=== PATIENT | female | born 1960 | race Caucasian/White ===

== ENCOUNTER 2017-01-08 05:20 | Day surgery (SDC) | payer MEDICARE ==
[2017-01-07 12:36] LABS: BASOPHILS 2.2 % (0-2); EOSINOPHILS 6.3 % (0-7); HEMATOCRIT 36.6 % (36.0-48.0); HEMOGLOBIN 11.6 g/dL (12-16); LYMPHOCYTES 42.8 % (15-50); MCH 29.7 pg (26.0-34.0); MCHC 31.7 g/dL (31.0-37.0); MCV 93.6 fL (80.0-100.0); MEAN PLATELET VOLUME 11.3 fL (7.4-10.4); MONOCYTES 10.7 % (2-11); PLATELET COUNT 304 10x3/uL (130-400); RBC 3.91 10x6/uL (4.00-5.40); WBC 4.1 10x3/uL (4.8-10.8)
[2017-01-07 12:56] LABS: ANION GAP 12.1 mmol/L (8-16); CALCIUM 8.8 mg/dL (8.5-10.1); CARBON DIOXIDE 26.1 mmol/L (21.0-32.0); CREATININE - SERUM 1.4 mg/dL (0.6-1.3); POTASSIUM - SERUM 4.2 mmol/L (3.5-5.1)
[~2017-01-08] VITALS: Ht 152.4 cm; Wt 67.1 kg
--- NOTE | ~2017-01-08 | OP ---
PATIENT NAME: ROZ BATISTA V MEDICAL RECORD: [id number] :62 LOCATION:D.OPS ADMISSION DATE: SURGEON: JOSE FLOREZ MD DATE OF OPERATION: 01/08/2017 PREOPERATIVE DIAGNOSES: 1. Dysphagia. 2. Anemia. 3. Gastric antral vascular ectasias. POSTOPERATIVE DIAGNOSES: 1. Dysphagia. 2. Anemia. 3. Gastric antral vascular ectasias. PROCEDURES: 1. Esophagogastroduodenoscopy with antral biopsies. 2. Esophageal dilation with a 54-Namibian through the catheter balloon. 3. Argon plasma coagulation therapy to areas of gastric antral vascular ectasias. SURGEON: Jose Florez MD IT SECURITY CONSULTANT: None. BLOOD LOSS: Minimal. ANESTHESIA: General. COMPLICATIONS: None. The degree of gastric antral vascular ectasias likely does not account for the patient's anemia. There were only about a dozen patchy areas which were small. ENDOSCOPIC COURSE: The patient was conveyed to the operating room electively on 01/08/2017. General anesthesia was induced by anesthesia staff. A bite block was inserted. A gastroscope was inserted into the mouth. It was advanced easily into the hypopharynx. The esophagus was easily intubated as were the stomach and duodenum. Upon withdrawal, retroflexed and angulus views were obtained. Antral biopsies were obtained. I then used the argon plasma metal drilling machine operator with the esophageal mode in the forced setting to ablate the areas of gastric antral vascular ectasias. I noted no others. I then withdrew into the cardia of the stomach. I advanced through the catheter balloon. I then sequentially dilated the entire length of the esophagus to 54-Namibian. I then removed the gastroscope and balloon dilator. I readvanced the gastroscope. There had been no false passage or perforation. The gastroscope was then withdrawn under direct vision. The patient was then extubated and conveyed to post-anesthesia care unit where she was in stable condition. She will be dismissed home and I will see her in the office in 2-3 weeks. TRANSINT:[id number] Voice Confirmation ID: [id number] DOCUMENT ID: [id number] OPERATIVE REPORT [id number] ROZ BATISTA V JOSE FLOREZ MD CC: TEENA QUINTANILLA MD and KEL MARIA MD [id number] DICTATION DATE: 01/08/17903 GUN PERFORATOR LOADER: 01/08/17 1643 [facility] [place] 01/08/17 [facility] [address] [place] [address]
--- NOTE | ~2017-01-08 | HP ---
PATIENT: ROZ BATISTA V MEDICAL RECORD: [id number] ACCOUNT: [id number] LOCATION:TEJA : 62 ADMISSION DATE: 01/08/17 HISTORY AND PHYSICAL EXAMINATION CHIEF COMPLAINT: Anemia. HISTORY OF PRESENT ILLNESS: The patient has had melena. She has had anemia. She has had a history of gastric antral vascular ectasias, which have caused blood loss anemia. She also has dysphagia at the level of the cricopharyngeus. My plan is esophagogastroduodenoscopy with argon plasma coagulation therapy to areas of gastric antral vascular ectasias as well as esophageal dilation. The risks, possible complications and alternatives to procedure were explained to the patient. She elects to proceed. ALLERGIES: SHE HAS NUMEROUS ALLERGIES. See the nursing list for the allergies. HOME MEDICATIONS: Acyclovir, Phenergan, lisinopril, Zoloft, insulin as well as levothyroxine. PAST MEDICAL AND SURGICAL HISTORY: Coronary artery disease, hypertension, history of CABG, history of coronary stents, insulin-dependent diabetes mellitus, also hypothyroidism, on replacement therapy. SOCIAL HISTORY: Nonsmoker. PHYSICAL EXAMINATION: GENERAL: The patient does not appear acutely ill. She does not appear chronically ill. VITAL SIGNS: Reviewed. HEAD: External ears appear normal. EYES: Extraocular movements are intact. NECK: Trachea is midline. CHEST: No intercostal retractions. PULMONARY: Nonlabored, no stridor. ABDOMEN: She has epigastric tenderness. IMPRESSION: 1. Anemia, likely blood loss anemia. 2. History of gastric antral vascular ectasias. 3. Dysphagia. PLAN: EGD, esophageal dilation, radiofrequency ablation of areas of gastric antral vascular ectasias. TRANSINT:[id number] Voice Confirmation ID: [id number] DOCUMENT ID: [id number] HISTORY AND PHYSICAL [id number] ROZ BATISTA V JOSE FLOREZ MD CC: TEENA QUINTANILLA MD, SEYMOUR TREJO MD and KEL MARIA [id number] DICTATION DATE: 01/08/17900 LAY OUT TECHNICIAN: 01/08/17954 [facility] [address] [place] [address]
[~2017-01-08 05:20] MED LIST: ARAVA10 MG PO; ASPIRIN EC81 M1 PO; ASPIRIN81 MG PO; BAYER CHEWABLE81 MG PO; BYSTOLIC5 MG PO; CALCIUM 600+D T1 TA1 PO; CARAFATE1 G/10 ML PO; COMPAZINE10 MG PO; DEXILANT60 MG PO; DILAUDID2 MG PO; GAS-X180 MG PO; HUMALOG 30100 UNITS/; HUMALOG 30100 UNITS/ SC; HUMULIN R100 U/ML SC; K-DUR20 MEQ PO; LANTUS INSULIN10 ML; LANTUS INSULIN10 ML SC; LASIX40 MG PO; LEVAQUIN500 MG PO; LEVOTHROID100 MCG PO; LOPRESSOR25 MG PO; MEVACOR40 MG PO; MYLANTA II SUSP30 ML PO; NITROMIST8.5 GM SL; NOVOLIN R100 U/ML SQ; PEPCID20 MG PO; PHENERGAN25 M1; PHENERGAN25 M1 PO; PLAVIX75 MG PO; PRENATAL COMPLE1 TAB PO; PREVALITE POWD231 GM PO; PRINIVIL20 MG PO; PROBIOTIC1 EAC1 PO; RESTORIL15 MG PO; SILVADENE CREAM50 GM TOPICAL; SYNTHROID112 MCG PO; TOPROL XL25 MG PO; TRICOR145 MG PO; VIVELLE-DO1 PATCH.B1 TP; ZOLOFT50 MG PO; ZOVIRAX400 MG PO; ZYLOPRIM100 MG PO
[2017-01-08 06:18] VITALS: BP 127/56; Ht 152.4 cm; Wt 67.1 kg
--- NOTE | 2017-01-08 09:15 | NUR ---
THE PATIENT REPORTED NAUSEA UPON ENTRANCE TO RECOVERY AND IT HAS NOW RESOLVED AFTER TREATMENT
--- NOTE | 2017-01-08 10:07 | NUR ---
[address] [place] DIET SERVED.
== END 2017-01-08 11:35 | disposition home or self-care (01) ==
LOC: D.OPS 05:20 → D.PAN 08:00 → D.OPS 11:35 → D.PAN 13:30 → D.OPS 13:30 → D.PAN 14:15
PROVIDERS: Anesthesiology
DX: K31.811 Angiodysplasia of stomach and duodenum with bleeding (principal); D50.0 Iron deficiency anemia secondary to blood loss (chronic); I25.10 Atherosclerotic heart disease of native coronary artery without angina pectoris; I10 Essential (primary) hypertension; Z95.1 Presence of aortocoronary bypass graft; Z95.5 Presence of coronary angioplasty implant and graft; E11.9 Type 2 diabetes mellitus without complications; E03.9 Hypothyroidism, unspecified; Z79.4 Long term (current) use of insulin; Z79.899 Other long term (current) drug therapy; Z01.812 Encounter for preprocedural laboratory examination

== ENCOUNTER 2017-01-29 22:52 | Observation (INO) | payer MEDICARE ==
[~2017-01-29] VITALS: Ht 152.4 cm; Wt 64.9 kg
--- NOTE | ~2017-01-29 | CN ---
PATIENT NAME:ROZ BATISTA V MEDICAL RECORD: [id number] : 62 LOCATION:D. D.2122 ADMIT DATE: 01/30/17 ACCOUNT: [id number] CONSULTING PHYSICIAN: SEYMOUR TREJO MD REFERRING PHYSICIAN: SINTIA SWARTZ MD CARDIOLOGY CONSULT PROBLEM LIST: 1. Unstable angina. 2. Coronary artery disease. 3. Status post coronary artery bypass graft surgery. 4. Status post multivessel percutaneous transluminal coronary angioplasty stent. 5. Hypertension. 6. Hyperlipidemia. 7. Recurrent gastrointestinal bleed with AV malformations. 8. Recent laser surgery gastric for AV malformations due to gastrointestinal bleeding. 9. Insulin dependent diabetes. HISTORY OF PRESENT ILLNESS: The patient is well-known to us. She is a 56-year-old female with a past history of coronary artery disease who presents with recurrent anginal chest discomfort. Her last cardiac intervention was in August of 2015. She has quite the problem with Plavix. She has AV malformations of her stomach. Every time she gets on Plavix she has significant gastrointestinal bleeding requiring transfusion. Her last gastrointestinal bleed was approximately one month ago. She had laser sclerotherapy done to her AV malformations by Dr. Shepherd. She has been stable from the standpoint of gastrointestinal bleeding since. Her chest pain started within the past week. She is having increasing episodes of chest pain just like that of her previous angina. PHYSICAL EXAMINATION: HEAD, EYES, EARS, NOSE, AND THROAT: Benign. NECK: Supple. No jugular venous distention. Carotid upstroke plus two bilaterally without bruits. LUNGS: Overall clear to auscultation and percussion. HEART: Regular. Normal S1, normal S2. No S3, no S4. No murmurs. BONES, JOINTS, EXTREMITIES: No clubbing, cyanosis, or edema. OVERALL IMPRESSION: Anginal symptomatology. Will proceed with coronary angiography. Will use a stent that only requires 30 days of Plavix secondary to her intolerance of the Plavix from gastrointestinal bleeding and her recent gastrointestinal bleeding. Further care depends upon the findings of the angiography. SEYMOUR TREJO MD CC: [id number] DICTATION DATE: 01/30/17 1400 LUGGAGE MAKER: DM 01/31/17 1541 [facility] [place] 01/30/17 [facility] [address] [place] [id number]
--- NOTE | ~2017-01-29 | OP ---
PATIENT NAME: ROZ BATISTA V MEDICAL RECORD: [id number] :62 LOCATION:D. D.2 ADMISSION DATE:01/30/17 SURGEON: SEYMOUR TREJO MD OPERATION DATE: 01/30/17 PROCEDURES: 1. Percutaneous transluminal coronary angioplasty stent vein graft to the left circumflex. 2. Left heart catheterization. 3. Selective coronary angiography. 4. Left ventriculogram. 5. Vein graft angiography. 6. Left internal mammary artery angiography. INDICATION: 1. Unstable angina. 2. Coronary artery disease. PROCEDURE IN DETAIL: After informed consent was obtained and after detailed explanation of risks, benefits, as well as alternative therapies, the patient elected to proceed with angiogram and angiography. The right femoral area was prepped and draped in a normal sterile fashion. The right femoral artery was cannulated via modified Seldinger technique with placement of 6-Swedish sheath. All catheters exchanged through this sheath. FINDINGS: SELECTIVE CORONARY ANGIOGRAPHY: 1. Left main was with no significant angiographic disease. 2. Left anterior descending has a high grade stenosis in the mid vessel. 3. Left internal mammary artery to the distal left anterior descending is widely patent. 4. Distal left anterior descending is widely patent. 5. The left circumflex has a subtotal stenosis in the mid vessel. 6. Vein graft to the circumflex is patent. However, there is a stent in the proximal portion of the vein graft with 99% in-stent restenosis, JAD 2 flow. The lesion is approximately an 8 millimeter lesion in a 3.0 vessel. 7. The right coronary artery has previously placed stents. These are widely patent with no significant restenosis. No disease elsewise to the right coronary artery or its branches. PTCA STENT OF THE VEIN GRAFT TO THE CIRCUMFLEX: The stent used was 3.0 X 11 millimeter [employer] taken to 17 atmospheres. Post stent dilatation made with a 3.5 balloon taken to 23 atmospheres. The result was 0% residual stenosis. OVERALL IMPRESSION: Successful percutaneous transluminal coronary angioplasty stent of the vein graft to the circumflex going from 95% initial stenosis that was in-stent restenosis to 0% residual stenosis. ` OPERATIVE REPORT [id number] ROZ BATISTA V SEYMOUR TREJO MD CC: [id number] DICTATION DATE: 01/30/17 1400 CUSTOMER INSIGHT ANALYST: DM 01/31/17 1405 [facility] [place] 01/30/17 [facility] [address] [place] [address]
--- NOTE | ~2017-01-29 | HEMODYNAMI ---
PATIENT:ROZ BATISTA V MEDICAL RECORD: [id number] : 62 LOCATION:[facility] D.2122 ADMISSION DATE: 01/30/17 Generatedon:01/30/201714:00 Patient name: RZO BATISTA Patient #: [id number] SSN: D OB: 1960 Date of study: 01/30/2017 Page: Of Hemodynamic Procedure Report Patient Data Patient Demographics Procedure consent was obtained First Name: ROZ Gender: Female Last Name: : 1960 Middle Initial: V Age: 56 year(s) Patient #: [id number] Race: Additional ID: [id number] Contact details [address]: [address] [place] [address] State: [place] City: [place] Zip code: [address] Past Medical History Allergies Allergen Reaction Date Comments Reported Sulfa drugs 09/02/2014 Admission Admission Data Admission Date: 01/30/2017 Admission Time: 1:14 Room #: [facility] Height (in.): 60 BSA: 1.62 (m2) Height (cm.): 152.4 BMI: 27.93 (kg/m2) Weight (lbs.): 143 Weight (kg.): 64.86 Lab Results Lab Result Date: 01/30/2017 Lab Result Time: 0:00 Biochemistry Name Units Result Min Max BUN mg/dl 23 --(----)-* 7 18 CK-MB ng/ml 2.7 --(---*)-- 0 3.6 Creatinine mg/dl 1.5 --(----)-* 0.6 1.3 Creatinine l 71 --(-*--)-- 21 215 Kinase Troponin l ng/ml 0.017 --(-*--)-- 0 0.06 CBC Name Units Result Min Max Hemoglobin g/dl 10.6 *-(----)-- 13.5 17.5 Procedure Procedure Types Cath Procedure Diagnostic Procedure LHC LHC w/Coronaries w/Grafts PCI Procedure SVG-BMS/LISSETTE Initial Miscellaneous Procedures Moderate Sedation up to 45 minutes Procedure Description Procedure Date Procedure Date: 01/30/2017 Procedure Start Time: 13:12 Procedure End Time: 13:59 Procedure Staff Name Function Major Walsh MD Performing Physician Dave Fairchild RT Scrub Birgit Riley RN Nurse Efe Narayan RT Monitor Procedure Data Cath Procedure Fluoroscopy Diagnostic fluoroscopy Total fluoroscopy Time: 13 time: 13 min min Diagnostic fluoroscopy Total fluoroscopy dose: dose: 254.86 mGy 254.86 mGy Contrast Material Contrast Material Type Amount (ml) Isovue 300 132 Entry Location Entry Primary Successful Side Size Upsize Upsize Entry Closure Succes sful Closure Location (Fr) 1 (Fr) 2 (Fr) Remarks Device Remarks Femoral Right 5 Fr 6 Fr Exoseal artery Short Diagnostic catheters Device Type Used For End Catheter Placement Cordis 5Fr Pigtail LV Angiography Catheter (MP) Cordis 5Fr JL 4.0 Left Coronary Catheter (MP) Angiography Cordis 5Fr 3DRC Catheter Right Coronary (MP) Angiography Diagnostic Infinity 5Fr SVG Angiography AR 1 MOD catheter Procedure Complications No complications Procedure Medications Medication Administration Route Dosage Oxygen NC 3 l/min Lidocaine 2% added to field 20 Heparin Flush Bag added to field 2 bags (1000units/500ml NS) 0.9% NaCl I.V. 100 ml/hr Versed I.V. 1 mg Fentanyl I.V. 50 mcg Heparin Bolus I.V. 4000 units Integrilin (Bolus I.V. 5.6 ml 2mg/ml) Integrilin (Bolus wasted 4.4 ml 2mg/ml) Versed I.V. 1 mg Fentanyl I.V. 50 mcg Versed I.V. 1 mg Fentanyl I.V. 50 mcg Versed I.V. 1 mg Fentanyl I.V. 50 mcg Versed I.V. 1 mg Fentanyl I.V. 50 mcg Versed I.V. 1 mg Fentanyl I.V. 50 mcg Hemodynamics Rest BSA: 1.62 (m2) HGB: 10.6 (g/dl) O2 Consumption: Estimated: 153.39 (ml/min) O2 Co nsumption indexed: Estimated:94.69 (ml/min/m) Heart Rate: 66 (bpm) Pressure Samples Time Site Value (mmHg) Purpose Heart Use Rate(bpm) 13:26 AO 127/56(85) Snapshot 75 Snapshots Pre Cath Intra NCS Post Cath Vital Signs Time Heart Resp SPO2 NIBP (mmHg) Rhythm Pain Sedation Rate (ipm) (%) Status Level (bpm) 12:44:22 61 20 100 145/68(105) NSR 0 (11) 10(A) , No pain 12:49:21 67 19 100 Measuring NSR 0 (11) 10(A) , No pain 12:49:39 66 19 100 129/58(99) NSR 0 (11) 10(A) , No pain 12:54:00 66 20 100 110/61(97) NSR 0 (11) 10(A) , No pain 12:58:18 69 17 99 109/57(93) NSR 0 (11) 10(A) , No pain 13:02:36 68 18 99 107/54(92) NSR 0 (11) 10(A) , No pain 13:06:54 69 16 99 116/56(88) NSR 0 (11) 10(A) , No pain 13:11:08 69 18 99 119/58(90) NSR 0 (11) 9(A) , No pain 13:15:26 70 20 99 106/53(84) NSR 0 (11) 9(A) , No pain 13:19:42 71 17 99 114/58(86) NSR 0 (11) 9(A) , No pain 13:23:56 71 17 98 113/55(96) NSR 0 (11) 9(A) , No pain 13:28:08 71 20 99 99/54(84) NSR 0 (11) 9(A) , No pain 13:32:22 68 18 98 102/51(74) NSR 0 (11) 9(A) , No pain 13:36:38 71 19 99 116/55(92) NSR 0 (11) 9(A) , No pain 13:40:52 68 10 99 110/56(84) NSR 0 (11) 9(A) , No pain 13:45:14 69 14 99 118/47(100) NSR 0 (11) 10(A) , No pain 13:49:26 74 21 98 98/25(50) NSR 0 (11) 10(A) , No pain 13:53:38 67 6 95 115/60(97) NSR 0 (11) 10(A) , No pain 13:58:00 68 8 96 126/54(107) NSR 0 (11) 10(A) , No pain Medications Time Medication Route Dose Verified Delivered Reason Notes Ef fectiveness by by 12:43:26 Oxygen NC 3 Birgit Birgit used for l/min Osvaldo Osvaldo insole buffer RN 12:43:36 Lidocaine 2% added 20ml Birgit Birgit used for to vial Osvaldo Osvaldo procedure field RN RN 12:43:44 Heparin Flush added 2 Birgit Birgit used for Bag to bags Osvaldo Osvaldo procedure (1000units/500ml field RN RN NS) 12:43:55 0.9% NaCl I.V. 100 Birgit Birgit used for ml/hr Osvaldo Osvaldo insole buffer RN 13:09:47 Versed I.V. 1 mg Birgit Birgit for Osvaldo Osvaldo sedation RN RN 13:09:54 Fentanyl I.V. 50 Birgit Birgit for mcg Osvaldo Osvaldo sedation RN RN 13:13:29 Versed I.V. 1 mg Birgit Birgit for Osvaldo Osvaldo sedation RN RN 13:13:40 Fentanyl I.V. 50 Birgit Birgit for mcg Osvaldo Osvaldo sedation RN RN 13:16:56 Heparin Bolus I.V. 4000 Major Birgit Per verified units Jillian PINTO Osvaldo physician with dr. REINALDO walsh 13:17:24 Integrilin I.V. 5.6 Major Birgit Per verified (Bolus 2mg/ml) ml Jillian PINTO Osvaldo physician with dr. REINALDO walsh 13:17:44 Versed I.V. 1 mg Birgit Birgit for Osvaldo Osvaldo sedation RN RN 13:17:56 Fentanyl I.V. 50 Birgit Birgit for mcg Osvaldo Osvaldo sedation RN RN 13:21:44 Versed I.V. 1 mg Birgit Birgit for Osvaldo Osvaldo sedation RN RN 13:21:56 Fentanyl I.V. 50 Birgit Birgit for mcg Osvaldo Osvaldo sedation RN RN 13:25:02 Versed I.V. 1 mg Birgit Birgit for Osvaldo Osvaldo sedation RN RN 13:25:24 Fentanyl I.V. 50 Birgit Birgit for mcg Osvaldo Osvaldo sedation RN RN 13:31:56 Versed I.V. 1 mg Birgit Birgit for Osvaldo Osvaldo sedation RN RN 13:32:01 Integrilin wasted 4.4 Major Birgit Per (Bolus 2mg/ml) ml Jillian PINTO Osvaldo physician RN 13:32:08 Fentanyl I.V. 50 Birgit Birgit for mcg Osvaldo Osvaldo sedation RN save all operator Log Time Note 12:15:12 Dave Fairchild RT(R) (CV) sent for patient. Start room use. 12:37:23 Time tracking: Regular hours 12:37:26 Plan of Care:Hemodynamics will remain stable., Cardiac rhythm will remain stable., Comfort level will be maintained., Respiratory function will remain adequate., Patient/ family verbilizes understanding of procedure., Procedure tolerated without complication., Recovers from procedure without complications.. 12:37:40 Patient received from Med/Surg to CCL 3 Alert and oriented. Tansferred to table in Supine position. 12:37:41 Warm blankets applied, and fernando hugger turned on for patient comfort. 12:37:42 Correct patient and procedure confirmed by team. 12:37:43 Signed procedure consent form obtained from patient. 12:37:44 ECG and BP/O2 sat monitors applied to patient. 12:38:22 Full Disclosure recording started 12:38:22 - 12:38:26 H&P Date Dictated: 01/30/2017 Within 30 days and on chart.. 12:38:28 Pre-procedure instructions explained to patient. 12:38:28 Pre-procedure instructions explained to patient. 12:38:29 Pre-op teaching completed and patient verbalized understanding. 12:38:31 Family in waiting room. 12:38:33 Patient NPO since Midnight. 12:38:36 Is the patient allergic to Iodine/contrast media? No. 12:38:38 Is patient on blood thinner?No 12:38:40 Patient diabetic? Yes. 12:38:42 If diabetic: On Metformin? No 12:39:09 ----Pre-sedation anethsthesia assessment.---- 12:39:12 Previous problem with sedation/anesthesia? No ? 12:39:13 Snore? Yes 12:39:15 Sleep apnea? No 12:39:16 Deviated septum? No 12:39:17 Opens mouth fully? No 12:39:19 Sticks out tongue? Yes 12:39:22 Airway obstruction? Yes ? 12:39:25 Dentures? No ? 12:39:37 Pre procedure: right dorsailis pedis pulse Doppler 12:39:42 Patient pain scale 0/10 NO PAIN. 12:42:54 Sharps counted by scrub and verified by R.N. 12:42:55 Alarms reviewed by R. N. 12:42:59 Right groin area was prepped with chlora-prep and draped in sterile fashion 12:43:09 Vital chart was started 12:43:09 IV patent on arrival in right forearm with 0.9% NaCl at [facility]. 12:43:26 Oxygen 3 l/min NC was administered by Birgit Riley RN; used for procedure; 12:43:36 Lidocaine 2% 20ml vial added to field was administered by Birgit Riley RN; used for procedure; 12:43:44 Heparin Flush Bag (1000units/500ml NS) 2 bags added to field was administered by Birgit Riley RN; used for procedure; 12:43:55 0.9% NaCl 100 ml/hr I.V. was administered by Birgit Riley RN; used for procedure; 12:49:20 Use device set Femoral Dx 12:49:21 Tegaderm 4 x 4 opened to sterile field. 12:49:22 Diagnostic Infinity 5Fr Multipack catheter opened to sterile field. 12:49:23 Acist Manifold opened to sterile field. 12:49:24 Acist Hand Control opened to sterile field. 12:49:45 Acist Syringe opened to sterile field. 12:49:45 Bag Decanter opened to sterile field. 12:49:47 Medline Cath Pack opened to sterile field. 12:49:48 Terumo 5Fr [place] Sheath opened to sterile field. 12:49:50 St Abelardo 260cm J .035 wire opened to sterile field. 12:55:03 Baseline sample Acquired. 12:55:07 Rhythm: sinus rhythm 12:55:49 Patient Height : 152.4 cm 12:55:52 Patient Weight : 64.86 kg 13:03:23 Zero performed for pressure channel P1 13:09:09 Physician arrived 13:09:10 --------ALL STOP TIME OUT------ 13:09:11 Final Timeout: patient, procedure, and site verified with staff and physician. All members of the team are in agreement. 13:09:13 Right groin site verified by team. 13:09:16 Physical assessment completed. ASA score P 2 - A patient with mild systemic disease as per Major Walsh MD. 13:09:20 Sedation plan: IV Moderate Sedation Versed, Fentanyl 13:09:47 Versed 1 mg I.V. was administered by Birgit Riley RN; for sedation; 13:09:54 Fentanyl 50 mcg I.V. was administered by Birgit Riley RN; for sedation; 13:10:53 Procedure started. 13:12:57 Local anesthetic to right femoral artery with Lidocaine 2% by Major Walsh MD.INITIAL ACCESS ONLY 13:13:09 A 5 Fr sheath was inserted into the Right Femoral artery 13:13:28 A Cordis 5Fr Pigtail Catheter (MP) was advanced over the wire and used for LV Angiography. 13:13:29 Versed 1 mg I.V. was administered by Birgit Riley RN; for sedation; 13:13:31 LV angiography performed. 13:13:35 Catheter removed. 13:13:40 Fentanyl 50 mcg I.V. was administered by Birgit Riley RN; for sedation; 13:13:42 A Cordis 5Fr JL 4.0 Catheter (MP) was advanced over the wire and used for Left Coronary Angiography. 13:14:08 LCA angiography performed. 13:14:20 Catheter removed. 13:14:41 A Cordis 5Fr 3DRC Catheter (MP) was advanced over the wire and used for Right Coronary Angiography. 13:15:30 SEN angiography performed. 13:15:37 SEN to LAD angiography performed. 13:15:46 RCA angiography performed. 13:16:20 Reglare Launcher 6Fr AR 2.0 guide catheter opened to sterile field. 13:16:21 [employer] BasixCompak Inflation Kit opened to sterile field. 13:16:22 Zuleta Whisper J 300cm 0.014 guide wire opened to sterile field. 13:16:34 A Diagnostic Infinity 5Fr AR 1 MOD catheter was advanced over the wire and used for SVG Angiography. 13:16:42 SEN to Circ angiography performed. 13:16:56 Heparin Bolus 4000 units I.V. was administered by Birgit Riley RN; Per physician; verified with dr. walsh 13:17:09 Sheath upsized to a 6 Fr Short. 13:17:24 Integrilin (Bolus 2mg/ml) 5.6 ml I.V. was administered by Birgit Riley RN; Per physician; verified with dr. walsh 13:17:44 Versed 1 mg I.V. was administered by Birgit Riley RN; for sedation; 13:17:56 Fentanyl 50 mcg I.V. was administered by Birgit Riley RN; for sedation; 13:18:44 WHISPER wire advanced. 13:18:51 Medtronic Launcher 6Fr AR 2.0 SH guide catheter opened to sterile field . 13:21:44 Versed 1 mg I.V. was administered by Birgit Riley RN; for sedation; 13:21:56 Fentanyl 50 mcg I.V. was administered by Birgit Riley RN; for sedation; 13:23:47 Procedure type changed to Cath procedure, Diagnostic procedure, LHC, LH C w/Coronaries w/Grafts, PCI procedure, SVG-BMS/LISSETTE Initial, Miscellaneous Procedures, Moderate Sedation up to 45 minutes 13:24:50 Inflation number: 1 A Mozec Rx 2.5 x 14 balloon was prepped and advance d across the Aorta Left -> Mid CX, then inflated to 8 DARLING for 0:06 (min:sec). 13:25:02 Versed 1 mg I.V. was administered by Birgit Riley RN; for sedation; 13:25:15 Balloon removed over the wire. 13:25:16 Balloon removed over the wire. 13:25:24 Fentanyl 50 mcg I.V. was administered by Birgit Riley RN; for sedation; 13:27:25 Inflation number: 2 A Euphora 1.5 x 15 Balloon was prepped and advanced across the Aorta Left -> Mid CX, then inflated to 21 DARLING for 0:08 (min:sec). 13:27:50 Inflation number: 3 The Euphora 1.5 x 15 Balloon was reinflated across the Aorta Left -> Mid CX, to 21 DARLING for 0:17 (min:sec). 13:28:13 Balloon removed over the wire. 13:29:58 Inflation number: 4 The Mozec Rx 2.5 x 14 balloon was reinflated across the Aorta Left -> Mid CX, to 21 DARLING for 0:30 (min:sec). 13:30:23 Inflation number: 5 The Mozec Rx 2.5 x 14 balloon was reinflated across the Aorta Left -> Mid CX, to 21 DARLING for 0:11 (min:sec). 13:30:43 Balloon removed over the wire. 13:31:56 Versed 1 mg I.V. was administered by Birgit Riley RN; for sedation; 13:32:01 Integrilin (Bolus 2mg/ml) 4.4 ml wasted was administered by Birgit Riley RN; Per physician; 13:32:08 Fentanyl 50 mcg I.V. was administered by Birgit Riley RN; for sedation; 13:34:01 Inflation number: 6 A NC Euphora 2.75 x 15 balloon was prepped and advanced across the Aorta Left -> Mid CX, then inflated to 21 DARLING for 0:19 (min:sec). 13:34:46 Inflation number: 7 The NC Euphora 2.75 x 15 balloon was reinflated across the Aorta Left -> Mid CX, to 23 DARLING for 0:17 (min:sec). 13:35:03 Balloon removed over the wire. 13:37:10 Inflation number: 8 A NC Euphora 3.0 x 15 balloon was prepped and advanced across the Aorta Left -> Mid CX, then inflated to 21 DARLING for 0:10 (min:sec). 13:37:45 Balloon removed over the wire. 13:39:56 Inflation Number: 9 A Biofreedom 3.0 x 11 stent (No Cost Implant) was prepped and advanced across the Aorta Left -> Mid CX. The stent was deployed at 21 DARLING for 0:10 (min:sec). 13:40:23 Stent catheter was removed intact over wire. 13:41:53 Inflation number: 10 A NC Euphora 3.5 x 12 balloon was prepped and advanced across the Aorta Left -> Mid CX, then inflated to 21 DARLING for 0:12 (min:sec). 13:42:31 EVERYTHING OUT 13:42:46 Sheath removed intact; hemostasis achieved with Exoseal to the Right Femoral artery. 13:43:30 Cordis 6Fr Exoseal opened to sterile field. 13:43:31 Procedure ended.(Physican Out) 13:44:34 Fluoroscopy time 13.00 minutes. 13:50:58 Lab Result : BUN 23 mg/dl 13:50:58 Lab Result : Creatinine 1.5 mg/dl 13:50:58 Lab Result : CK-MB 2.7 ng/ml 13:50:58 Lab Result : Creatinine Kinase 71 l 13:50:58 Lab Result : Troponin l 0.017 ng/ml 13:50:58 Lab Result : Hemoglobin 10.6 g/dl 13:51:05 Insertion/operative site no bleeding no hematoma. 13:51:08 Post-op/insertion site Right Femoral artery dressed using a 4 x 4 and Tegaderm. 13:51:12 Post right femoral artery:stable 13:51:13 Post Procedure Pulses reassessed and unchanged 13:51:15 Post procedure: right dorsailis pedis pulse 1+ Palpable, but thready & weak; easily obliterated. 13:51:17 Post procedure rhythm: sinus rhythm 13:51:19 Post procedure instruction explained to patient.Patient verbalizes understanding. 13:51:20 Procedure and supply charges have been captured, reviewed, submitted an d are correct. 13:53:35 Flurop Dose total: 254.86 13:53:35 Fluoroscopy dose: 254.86 mGy 13:53:43 Contrast amount:Isovue 300 132ml. 13:53:44 Sharps counted by scrub and verified by R.N. 13:56:03 Procedure Complication : No complications 13:59:20 Vital chart was stopped 13:59:20 See physician's report for complete and final results. 13:59:23 Report given to PCU. 13:59:26 Patient transfered to PCU with Bed. 13:59:27 Procedure ended. 13:59:27 Full Disclosure recording stopped 13:59:31 End room use (Document Last) Intervention Summary Intervention Notes Time ActionType Lesion and Equipment Action# Pressure Duration Attributes Used 13:24:50 Inflate Aorta Left Mozec Rx 1 8 00:06 balloon -> Mid CX 2.5 x 14 balloon 13:27:25 Inflate Aorta Left Euphora 2 21 00:08 balloon -> Mid CX 1.5 x 15 Balloon 13:27:50 Reinflate Aorta Left Euphora 3 21 00:17 balloon -> Mid CX 1.5 x 15 Balloon 13:29:58 Reinflate Aorta Left Mozec Rx 4 21 00:30 balloon -> Mid CX 2.5 x 14 balloon 13:30:23 Reinflate Aorta Left Mozec Rx 5 21 00:11 balloon -> Mid CX 2.5 x 14 balloon 13:34:01 Inflate Aorta Left NC Euphora 6 21 00:19 balloon -> Mid CX 2.75 x 15 balloon 13:34:46 Reinflate Aorta Left NC Euphora 7 23 00:17 balloon -> Mid CX 2.75 x 15 balloon 13:37:10 Inflate Aorta Left NC Euphora 8 21 00:10 balloon -> Mid CX 3.0 x 15 balloon 13:39:56 [address] stent Aorta Left Biofreedom 9 21 00:10 -> Mid CX 3.0 x 11 stent (No Cost Implant) 13:41:53 Inflate Aorta Left NC Euphora 10 21 00:12 balloon -> Mid CX 3.5 x 12 balloon Device Usage Item Name Manufacture Quantity Catalog Hospital Part Current Minimal Lot# / Number Charge Number Stock Stock Serial# Code Tegaderm 4 1 [id number] [id number] 5 x 4 Diagnostic Cardinal 1 [id number] 192555 69662 787237 30 Wedia 5Fr Multipack catheter Acist Acist 1 39232 452433 949499 601584 5 Manifold Medical Systems Inc Acist Hand Acist 1 52724 375019 527247 665075 5 Control Medical Systems Inc Acist Acist 1 50496 977024 489387 065527 20 Syringe Medical Systems Inc Bag Microtek 1 2002S 979130 17923 812789 5 [email or web address] Medical Inc. Medline Cardinal 1 [id number] 273390 75579 476489 5 Cath Pack Health Terumo 5Fr Terumo 1 [id number] 071473 745672 246392 [address] Abelardo 1 191568 778865 171410 079285 30 260cm J .035 wire Cordis 5Fr Cardinal 1 310059 5 Pigtail Health Catheter (MP) Cordis 5Fr Cardinal 1 759882 5 JL 4.0 Health Catheter (MP) Cordis 5Fr Cardinal 1 114666 5 3DRC Health Catheter (MP) Medtronic Medtronic 1 [id number] 652692 04477 684318 1 Launcher 6Fr AR 2.0 guide catheter Merit Merit 1 [id number] 648380 975892 100753 15 Basixappweevrk Medical Inflation Kit Zuleta Zuleta 1 [id number] 714527 332124 129646 5 Whisper J Vascular 300cm 0.014 guide wire Diagnostic Cardinal 1 [id number] 449899 658876 275246 15 Infinity Health 5Fr AR 1 MOD catheter Medtronic Medtronic 1 [id number] 647926 22478 501126 1 Launcher 6Fr AR 2.0 SH guide catheter Mozec Rx Cardinal 1 [id number] 342999 59045 164462 5 UMOA36 2.5 x 14 Health balloon Euphora 1.5 Medtronic 1 [id number] 139993 094002 185365 5 [id number] x 15 Balloon NC Euphora Medtronic 1 [id number] 877303 107698 023924 0 [id number] 2.75 x 15 balloon NC Euphora Medtronic 1 [id number] 837557 059121 104234 1 [id number] 3.0 x 15 balloon Biofreedom Biosensors 1 [facility]2-3011 731828 772983 5 [id number] 3.0 x 11 [place] SA stent (No Cost Implant) [place] Euphora Medtronic 1 [id number] 171433 107804 464392 1 [id number] 3.5 x 12 balloon Cordis 6Fr Cardinal 1 [id number] 663217 161165 295680 10 [id number] [facility]oma[facility] Signature Audit [place] Stage Time Signature Unsigned Intra-Procedure 01/30/2017 Efe 2:00:21 PM [place] RT (R) (CV) Signatures Monitor : Efe Signature : [place] RT Date : Time : [place] [address] [place] [address]
[2017-01-30 00:12] LABS: EOSINOPHILS 3.8 % (0-7); HEMATOCRIT 34.7 % (36.0-48.0); HEMOGLOBIN 10.9 g/dL (12-16); IMMATURE GRANULOCYTES 0.3 % (0-5); MCH 29.4 pg (26.0-34.0); MCHC 31.4 g/dL (31.0-37.0); MCV 93.5 fL (80.0-100.0); MEAN PLATELET VOLUME 10.1 fL (7.4-10.4); MONOCYTES 10.6 % (2-11); NEUTROPHILS 24.3 % (40-80); PLATELET COUNT 334 10x3/uL (130-400); RBC 3.71 10x6/uL (4.00-5.40); RDW 15.7 % (11.5-14.5)
[2017-01-30 00:31] LABS: ALBUMIN 3.2 g/dL (3.4-5.0); ALKALINE PHOSPHATASE 62 U/L (46-116); ALT (SGPT) 25 U/L (10-68); BILIRUBIN - TOTAL 0.36 mg/dL (0.2-1.3); CALC OSMOLALITY 287 mosm/kg (275-300); CALCIUM 8.7 mg/dL (8.5-10.1); CARBON DIOXIDE 30.2 mmol/L (21.0-32.0); CHLORIDE - SERUM 107 mmol/L (98-107); CREATININE - SERUM 1.5 mg/dL (0.6-1.3); POTASSIUM - SERUM 3.9 mmol/L (3.5-5.1); PROTEIN - SERUM 6.4 g/dL (6.4-8.2); SODIUM 144 mmol/L (136-145); UREA NITROGEN 23 mg/dL (7-18); eGFR NON AFRICAN AMERICAN 38 mL/min (90-120)
[2017-01-30 00:32] LABS: CKMB 2.7 U/L (0.0-3.6); CREATINE KINASE 71 UL (21-215)
[2017-01-30 00:33] LABS: GLUCOSE 50 mg/dL (74-106); TROPONIN-I < 0.017 ng/mL (0.000-0.060)
[2017-01-30 02:20] VITALS: BP 144/58; BMI 27.9
--- NOTE | 2017-01-30 02:54 | NUR ---
PT ARRIVED ON UNIT VIA WHEELCHAIR ESCORTED BY ER NURSE AND FAMILY MEMBERS. ORIENTED TO ROOM AND CALL LIGHT. CHANGED INTO GOWN AND EKG TECH PLACED...READING 58 SB AT FIRST CHECK. IV IN RIGHT AC SALINE LOCKED. NEURO CHECKS NORMAL. ADMISSION ASSESSMENT AND HISTORY COMPLETE. HOME MEDICATION RECONCILLIATION COMPLETE. WILL MONITOR FOR NEEDS.
[2017-01-30 07:19] LABS: CREATINE KINASE 63 UL (21-215); TROPONIN-I < 0.017 ng/mL (0.000-0.060)
[2017-01-30 07:40] VITALS: BP 125/31
--- NOTE | 2017-01-30 07:45 | NUR ---
PT ASSESSMENT COMPLETE AWAKE AND ALERT ORINETD X 3 LUNGS TORO PATTERSON MAKES ALL REQUESTS KNOWN TO STAFF. UP AD KATELYN DENIES PAIN OR DISCOMFORT NO ACUTE DISTRESS CALL LIGHT IN REACH SIDE RAILS UP X 2
--- NOTE | 2017-01-30 07:50 | NUR ---
PATIENT IN MID STEPHENS POSITION RESTING WITH EYES CLOSED. RESPIRATIONS EVEN AND UNLABORED. SIDE RAILS UP X2. BED IN LOW POSITION. CALL LIGHT IN REACH.
[2017-01-30 08:47] LABS: HEMATOCRIT 32.5 % (36.0-48.0); HEMOGLOBIN 10.6 g/dL (12-16); MCH 30.5 pg (26.0-34.0); MCHC 32.6 g/dL (31.0-37.0); MCV 93.4 fL (80.0-100.0); MEAN PLATELET VOLUME 11.7 fL (7.4-10.4); PLATELET COUNT 334 10x3/uL (130-400); RBC 3.48 10x6/uL (4.00-5.40); WBC 3.4 10x3/uL (4.8-10.8)
[2017-01-30 08:48] LABS: ANION GAP 12.8 mmol/L (8-16); CALCIUM 8.7 mg/dL (8.5-10.1); CARBON DIOXIDE 27.2 mmol/L (21.0-32.0); CREATININE - SERUM 1.4 mg/dL (0.6-1.3)
[2017-01-30 09:49] LABS: ANISOCYTOSIS OCC; EOSINOPHILS 3 % (0-7); HYPOCHROMASIA OCC; LYMPHOCYTES 63 % (15-50); MONOCYTES 8 % (2-11); NEUTROPHILS 26 % (40-80); PLATELET ESTIMATE NORMAL; ROULEAUX OCC
[2017-01-30 11:35] VITALS: BP 99/46
[2017-01-30 12:23] LABS: TROPONIN-I 0.018 ng/mL (0.000-0.060)
--- NOTE | 2017-01-30 12:32 | NUR ---
PT TO SOFTWARE APPLICATION TESTER AT THIS [place] VIA BED WITH SOFTWARE APPLICATION TESTER TEAM PIV TO RT AC PATENT TO NS PER ORDER. FSBS 65 PRIOR TO TRANSPORT SOFTWARE APPLICATION TESTER TEAM NOTIFIED
--- NOTE | 2017-01-30 12:34 | NUR ---
VERBAL REPORT GIVEN TO KATY NAJERA IN PCU
[2017-01-30 13:33] VITALS: Ht 152.4 cm; Wt 64.9 kg
--- NOTE | 2017-01-30 14:22 | NUR ---
RECEIVED PT TO ROOM 2121. VITAL SIGNS STABLE, NO BLEEDING OR HEMATOMA NOTED TO RT GROIN. PT ASKED FOR SOME MILK. TEAM [employer] SAL[employer] ASSOCIATE PROVIDED PT WITH SOME MILK. BLOOD SUGAR 115 NOW. PT DENIES ANY NEEDS AT THIS TIME. CALL LIGHT IN REACH, FAMILY AT BEDSIDE, NAD NOTED, WILL CONTINUE TO MONITOR.
--- NOTE | 2017-01-30 14:45 | NUR ---
EKG DONE AND PLACED ON CHART. PT LAYING FLAT DENIES ANY NEEDS AT THIS TIME. CALL LIGHT IN REACH, FAMILY AT BEDSIDE, NAD NOTED, WILL CONTIUE TO MONITOR.
[2017-01-30 15:46] VITALS: BP 135/61
--- NOTE | 2017-01-30 17:00 | NUR ---
NO BLEEDING OR EDEMA ON SITE. NO APPARENT DISTRESS. WILL CONTINUE TO MONITOR.
[2017-01-30] MEDS ORDERED: PLAVIX75 MG PO (17:12)
--- NOTE | 2017-01-30 17:47 | NUR ---
SITTING UP IN BED. NO EDEMA OR BLEEDING NOTED FROM SITE. LAB HERE TO DRAW BLOOD.
--- NOTE | 2017-01-30 17:56 | NUR ---
IV DC WITH TIP INTACT. UP TO BR ALTAF WELL.
--- NOTE | 2017-01-30 18:28 | NUR ---
DISCHARGE INSTRUCTIONS GIVEN. BOTH FAMILY AND PATIENT UNDERSTAND. TO CAR VIA .
== END 2017-01-30 18:32 | disposition home or self-care (01) ==
LOC: D.ER 22:52 → D.MS 01-30 01:14 → OBSVTIME 01-30 01:14 → D.M2 01-30 12:48
PROVIDERS: Family Medicine; Internal Medicine Interventional Cardiology; ADMIT Emergency Medicine
DX: I25.110 Atherosclerotic heart disease of native coronary artery with unstable angina pectoris (principal); I11.9 Hypertensive heart disease without heart failure; Z95.1 Presence of aortocoronary bypass graft; Z95.5 Presence of coronary angioplasty implant and graft; Z87.891 Personal history of nicotine dependence; K27.9 Peptic ulcer, site unspecified, unspecified as acute or chronic, without hemorrhage or perforation; K21.9 Gastro-esophageal reflux disease without esophagitis; Z00.6 Encounter for examination for normal comparison and control in clinical research program; E10.40 Type 1 diabetes mellitus with diabetic neuropathy, unspecified; K31.819 Angiodysplasia of stomach and duodenum without bleeding; Z68.32 Body mass index [BMI] 32.0-32.9, adult; F32.9 Major depressive disorder, single episode, unspecified; G40.909 Epilepsy, unspecified, not intractable, without status epilepticus
CPT/HCPCS: 93459; C9600

== ENCOUNTER → 2017-08-15 08:51 | Outpatient (CLI) | payer MEDICARE ==
[2017-01-30 13:33] VITALS: BMI 27.9
== END | disposition home or self-care (01) ==
LOC: D.CT 08-12 09:30
DX: D50.9 Iron deficiency anemia, unspecified (principal); D72.819 Decreased white blood cell count, unspecified

== ENCOUNTER 2017-09-17 08:02 | Outpatient (CLI) | payer MEDICARE ==
--- NOTE | ~2017-09-17 | HEMODYNAMI ---
PATIENT:ROZ BATISTA V MEDICAL RECORD: [id number] : 62 LOCATION:D[facility]anna[facility] ADMISSION DATE: 09/17/17 Generatedon:09/17/201710:25 Patient name: ROZ BATISTA Patient #: [id number] SSN: D OB: 1960 Date of study: 09/17/2017 Page: Of Hemodynamic Procedure Report Patient Data Patient Demographics Procedure consent was obtained First Name: ROZ Gender: Female Last Name: : 1960 [facility] Initial: V Age: 56 year(s) Patient #: [id number] Race: Additional ID: [id number] Contact details [address]: [address] [place] [address] State: [place] City: [place] Zip code: [address] Past Medical History Allergies Allergen Reaction Date Comments Reported Sulfa drugs 09/02/2014 Morphine 09/17/2017 Admission Admission Data Admission Date: 09/17/2017 Admission Time: 8:02 Procedure Procedure Types Cath Procedure Diagnostic Procedure LHC LHC w/Coronaries w/Grafts PCI Procedure Coronary Stent Coronary Stent Initial Coronary Stent Additional Procedure Description Procedure Date Procedure Date: 09/17/2017 Procedure Start Time: 9:58 Procedure Staff Name Function Silvia Anthony RT Scrub Shanthi Calvo RN Nurse Major Walsh MD Performing Physician Gabby Alex RT Monitor Procedure Data Cath Procedure Fluoroscopy Diagnostic fluoroscopy Total fluoroscopy Time: 7.1 time: 7.1 min min Diagnostic fluoroscopy Total fluoroscopy dose: 691 dose: 691 mGy mGy Contrast Material Contrast Material Type Amount (ml) Isovue 300 113 Entry Location Entry Primary Successful Side Size Upsize Upsize Entry Closure Succes sful Closure Location (Fr) 1 (Fr) 2 (Fr) Remarks Device Remarks Femoral Right 5 Fr 6 Fr Exoseal artery Short Estimated blood loss: 10 ml Diagnostic catheters Device Type Used For End Catheter Placement MULTIPACK Pigtail 5 Fr LV Angiography catheter MULTIPACK JL 4.0 5Fr Left Coronary catheter Angiography MULTIPACK 3DRC 5Fr Internal mammary catheter arteriography MULTIPACK 3DRC 5Fr Right Coronary catheter Angiography Procedure Complications No complications Procedure Medications Medication Administration Route Dosage Oxygen NC 2 l/min Lidocaine 2% added to field 20 Heparin Flush Bag added to field 2 bags (1000units/500ml NS) 0.9% NaCl I.V. 100 ml/hr Versed I.V. 2 mg Fentanyl I.V. 100 mcg Versed I.V. 1 mg Fentanyl I.V. 50 mcg Heparin Bolus I.V. 4000 units Integrilin (Bolus I.V. 5.6 ml 2mg/ml) Versed I.V. 1 mg Fentanyl I.V. 50 mcg Plavix P.O. 600 mg Hemodynamics Rest Pre Cath Intra NCS Post Cath Vital Signs Time Heart Resp SPO2 etCO2 NIBP (mmHg) Rhythm Pain Sedation Rate (ipm) (%) (mmHg) Status Level (bpm) 9:42:19 56 24 98 0 135/61(114) NSR 0 (11) 10(A) , No pain 9:46:27 62 17 97 0 139/126(131) NSR 0 (11) 10(A) , No pain 9:50:49 60 18 96 0 105/57(84) NSR 0 (11) 10(A) , No pain 9:54:55 61 15 99 0 117/62(92) NSR 0 (11) 9(A) , No pain 9:59:06 60 16 98 0 112/59(93) NSR 0 (11) 9(A) , No pain 10:03:16 62 14 98 0 108/57(89) NSR 0 (11) 9(A) , No pain 10:07:28 60 19 98 0 107/49(83) NSR 0 (11) 9(A) , No pain 10:11:38 61 19 98 0 102/54(82) NSR 0 (11) 10(A) , No pain 10:16:37 69 16 97 0 Measuring NSR 0 (11) 10(A) , No pain Medications Time Medication Route Dose Verified Delivered Reason Notes Effectiveness by by 9:19:02 Oxygen NC 2 Major Maki used for l/min Jillian Calvo mold yarn supervisor 9:19:09 Lidocaine 2% added 20ml Major Gonsalves for local to vial Jillian Walsh MD anesthetic field 9:19:14 Heparin Flush added 2 Major Gonsalves used for Bag to bags Jillian Walsh MD procedure (1000units/500ml field NS) 9:19:23 0.9% NaCl I.V. 100 Major Maki Per physician ml/hr Jillian Calvo RN 9:58:30 Versed I.V. 2 mg Major Gonzalezie for sedation Jillian Calvo RN 9:58:36 Fentanyl I.V. 100 Major Maki for sedation mcg Jillian Calvo RN 10:03:41 Versed I.V. 1 mg Major Maki for sedation Jillian Calvo RN 10:03:49 Fentanyl I.V. 50 Major Gonzalezie for sedation mcg Jillian Calvo RN 10:04:58 Heparin Bolus I.V. 4000 Major Maki for units Jillian Calvo RN anticoagulation 10:05:58 Integrilin I.V. 5.6 Major Maki for wasted (Bolus 2mg/ml) ml Jillian Calvo RN antiplatelet 4.4 ml therapy of vial 10:09:25 Versed I.V. 1 mg Major Maki for sedation Jillian Calvo RN 10:09:29 Fentanyl I.V. 50 Major Maki for sedation mcg Jillian Calvo RN 10:16:33 Plavix P.O. 600 Major Maki for mg Jillian Calvo RN anticoagulation Procedure Log Time Note 9:19:02 Oxygen 2 l/min NC was administered by Shanthi Calvo RN; used for procedure; 9:19:09 Lidocaine 2% 20ml vial added to field was administered by Major Walsh MD; for local anesthetic; 9:19:14 Heparin Flush Bag (1000units/500ml NS) 2 bags added to field was administered by Major Walsh MD; used for procedure; 9:19:18 Shanthi Calvo RN sent for patient. Start room use. 9:19:19 Time tracking: Regular hours 9:19:22 Plan of Care:Hemodynamics will remain stable., Cardiac rhythm will remain stable., Comfort level will be maintained., Respiratory function will remain adequate., Patient/ family verbilizes understanding of procedure., Procedure tolerated without complication., Recovers from procedure without complications.. 9:19:23 0.9% NaCl 100 ml/hr I.V. was administered by Shanthi Calvo RN; Per physician; 9:35:10 Patient received from Pre/Post Procedure Room to CCL 2 Alert and oriented. Tansferred to table in Supine position. 9:35:11 Correct patient and procedure confirmed by team. 9:35:11 Warm blankets applied, and fernando hugger turned on for patient comfort. 9:35:13 Signed procedure consent form obtained from patient. 9:35:14 ECG and BP/O2 sat monitors applied to patient. 9:35:15 Full Disclosure recording started 9:40:57 Vital chart was started 9:41:02 Rhythm: sinus bradycardia 9:41:12 H&P Date Dictated: 09/16/2017 Within 30 days and on chart., H&P Addendum completed by physician on day of procedure. (MUST COMPLETE FOR ALL OUTPATIENTS). 9:41:14 Pre-op teaching completed and patient verbalized understanding. 9:41:14 Pre-procedure instructions explained to patient. 9:41:17 Family in patients room. 9:41:19 Patient NPO since Midnight. 9:42:19 Patient allergic to Morphine 9:51:08 Is the patient allergic to Iodine/contrast media? No. 9:55:47 Was the patient premedicated? No 9:55:50 Is patient on blood thinner?Yes 9:55:52 ACC The patient was administered the following blood thiners within the last 24 hours: ACCPlavix 9:55:54 Patient diabetic? No. 9:55:57 Previous problem with sedation/anesthesia? No ? 9:55:59 Snore? Yes 9:56:01 Sleep apnea? No 9:56:02 Deviated septum? No 9:56:03 Sticks out tongue? Yes 9:56:03 Opens mouth fully? Yes 9:56:06 Airway obstruction? No ? 9:56:08 Dentures? No ? 9:56:10 Pre procedure: right dorsailis pedis pulse 2+ Normal; easily identifiable; not easily obliterated 9:56:14 Patient pain scale 0/10 ?. 9:56:32 IV patent on arrival in right forearm with 0.9% NaCl at KVO. 9:56:48 Lab results completed and on chart. 9:56:50 Right groin area was prepped with chlora-prep and draped in sterile fashion 9:56:52 Sharps counted by scrub and verified by R.N. 9:56:52 Alarms reviewed by Delfino Jaime 9:56:53 Final Timeout: patient, procedure, and site verified with staff and physician. All members of the team are in agreement. 9:56:54 Right groin site verified by team. 9:56:58 Physical assessment completed. ASA score P 2 - A patient with mild systemic disease as per Major Walsh MD. 9:57:03 Sedation plan: IV Moderate Sedation Medication:Versed, Fentanyl 9:57:49 Zero performed for pressure channel P1 9:58:01 Use device set Femoral Dx 9:58:02 Bag Decanter (2002S) opened to sterile field. 9:58:02 ACIST Syringe (43917) opened to sterile field. 9:58:03 SHEATH 5FR Clarinda (VUC285) opened to sterile field. 9:58:03 Medline Cath Pack ([id number]) opened to sterile field. 9:58:04 DIAGNOSTIC WIRE .035 260cm J wire (698418) opened to sterile field. 9:58:05 ACIST Manifold (60647) opened to sterile field. 9:58:05 ACIST Hand Control (34884) opened to sterile field. 9:58:06 DIAGNOSTIC Multipack 5Fr catheter set ([id number]) opened to sterile field. 9:58:07 Tegaderm 4 x 4 (1626W) opened to sterile field. 9:58:08 PERCUTANEOUS ENTRY 19GA needle opened to sterile field. 9:58:11 Procedure started. 9:58:16 Local anesthetic to right femoral artery with Lidocaine 2% by Major Walsh MD.INITIAL ACCESS ONLY 9:58:30 Versed 2 mg I.V. was administered by Shanthi Calvo RN; for sedation; 9:58:36 Fentanyl 100 mcg I.V. was administered by Shanthi Calvo RN; for sedation; 9:58:52 A 5 Fr sheath was inserted into the Right Femoral artery 9:59:02 A MULTIPACK Pigtail 5 Fr catheter was advanced over the wire and used for LV Angiography. 9:59:48 LV gram done using ELLIOTT 9:59:51 Injector settings: Ml/sec: 10, Volume: 20, 9:59:52 Catheter removed. 10:01:10 A MULTIPACK JL 4.0 5Fr catheter was advanced over the wire and used for Left Coronary Angiography. 10:01:13 Catheter removed. 10:02:02 A MULTIPACK 3DRC 5Fr catheter was advanced over the wire and used for Internal mammary arteriography.to LAD 10:03:38 A MULTIPACK 3DRC 5Fr catheter was advanced over the wire and used for Right Coronary Angiography. 10:03:41 Versed 1 mg I.V. was administered by Shanthi Calvo RN; for sedation; 10:03:49 Fentanyl 50 mcg I.V. was administered by Shanthi Calvo RN; for sedation; 10:04:51 Catheter removed. 10:04:55 Use device set TAUTH PCI 10:04:56 INFLATOR Merit BasixCompak (ML4561) opened to sterile field. 10:04:57 SHEATH 6FR Clarinda (NBH576) opened to sterile field. 10:04:58 Heparin Bolus 4000 units I.V. was administered by Shanthi Calvo RN; for anticoagulation; 10:05:41 Sheath upsized to a 6 Fr Short. 10:05:58 Integrilin (Bolus 2mg/ml) 5.6 ml I.V. was administered by Shanthi Calvo RN; for antiplatelet therapy; wasted 4.4 ml of vial 10:06:20 GUIDE 6FR AR 2.0 SH catheter ([id number]) opened to sterile field. 10:07:40 6 Fr AR 2.0 SH guide catheter was inserted over the wire 10:07:43 CHOICE PT ES wire advanced. 10:08:06 CHOICE PT Extra Support 182cm wire ([id number]) opened to sterile field. 10:08:15 Inflation Number: 1 A INTEGRITY RX 2.5 x 12 stent ([id number]) was prepped and advanced across the Mid RCA. The stent was deployed at 19 DARLING for 0:06 (min:sec). 10:08:39 Inflation number: 1 The stent balloon was then re-inflated across the 1st RPL to 9 DARLING for 0:04 (min:sec). 10:08:59 Inflation number: 2 The stent balloon was then re-inflated across the 1st RPL to 13 DARLING for 0:02 (min:sec). 10:09:25 Versed 1 mg I.V. was administered by Shanthi Calvo RN; for sedation; 10:09:29 Fentanyl 50 mcg I.V. was administered by Shanthi Calvo RN; for sedation; 10:10:05 Inflation number: 2 The stent balloon was then re-inflated across the Mid RCA to 15 DARLING for 0:00 (min:sec). 10:10:27 Stent catheter was removed intact over wire. 10:10:28 Wire removed. 10:10:29 Guide catheter removed. 10:11:54 Inflation number: 1 A EUPHORA 2.0 x 15 Balloon ([id number]) was prepped and advanced across the R PDA, then inflated to 13 DARLING for 0:10 (min:sec). 10:13:18 Balloon removed over the wire. 10:14:15 Inflation Number: 3 A INTEGRITY RX 2.5 x 08 stent ([id number]) was prepped and advanced across the 1st RPL. The stent was deployed at 11 DARLING for 0:05 (min:sec). 10:14:30 Wire removed. 10:14:30 Stent catheter was removed intact over wire. 10:14:31 Guide catheter removed. 10:14:38 Sheath removed intact; hemostasis achieved with Exoseal to the Right Femoral artery. 10:14:40 Procedure ended.(Physican Out) 10:14:48 EXOSEAL 6Fr (EX600) opened to sterile field. 10:14:53 Fluoroscopy time 07.10 minutes. 10:14:56 Fluoroscopy dose: 691 mGy 10:14:56 Flurop Dose total: 691 10:15:01 Contrast amount:Isovue 300 113ml. 10:15:05 Sharps counted by scrub and verified by R.N. 10:15:07 Insertion/operative site no bleeding no hematoma. 10:15:09 Post-op/insertion site Right Femoral artery dressed using a 4 x 4 and Tegaderm. 10:15:12 Post right femoral artery:stable, clean and dry 10:15:13 Post Procedure Pulses reassessed and unchanged 10:15:15 Post-procedure physical assessment completed. ASA score P 2 - A patient with mild systemic disease as per Major Walsh MD. 10:15:17 Post procedure rhythm: unchanged. 10:15:19 Estimated blood loss: 10 ml 10:15:21 Patient needs reinforcement of post procedure teaching. 10:15:21 Post procedure instruction explained to patient.Patient verbalizes understanding. 10:16:03 Procedure type changed to Cath procedure, Diagnostic procedure, LHC, LHC w/Coronaries w/Grafts, PCI procedure, Coronary Stent, Coronary Stent Initial, Coronary Stent Additional 10:16:33 Plavix 600 mg P.O. was administered by Shanthi Calvo RN; for anticoagulation; 10:17:05 Procedure Complication : No complications 10:17:08 See physician's report for complete and final results. 10:17:24 Full Disclosure recording stopped 10:18:33 Procedure and supply charges have been captured, reviewed, submitted and are correct. 10:24:54 Report given to Pre/Post Procedure Room. 10:24:55 Patient transfered to Pre/Post Procedure Room with Stretcher. 10:24:58 End room use (Document Last) Intervention Summary Intervention Notes Time ActionType Lesion and Equipment Action# Pressure Duration Attributes Used 10:08:15 Place stent Mid RCA INTEGRITY RX 1 19 00:07 2.5 x 12 stent ([id number]) 10:08:39 Reinflate 1st RPL INTEGRITY RX 1 9 00:04 stent 2.5 x 12 balloon stent ([id number]) 10:08:59 Reinflate 1st RPL INTEGRITY RX 2 13 00:02 stent 2.5 x 12 balloon stent ([id number]) 10:10:05 Reinflate Mid RCA INTEGRITY RX 2 15 00:00 stent 2.5 x 12 balloon stent ([id number]) 10:11:54 Inflate R PDA EUPHORA 2.0 1 13 00:10 balloon x 15 Balloon ([id number]) 10:14:15 Place stent 1st RPL INTEGRITY RX 3 11 00:05 2.5 x 08 stent ([id number]) Device Usage Item Name Manufacture Quantity Catalog Number Hospital Part Current [facility] Lot# / Charge Number Stock Stock Serial# Code ACIST Acist 1 35076 784007 402112 374024 20 Syringe Medical (48236) Systems Inc Bag Decanter Microtek 1 2001S 523739 72898 098754 5 () Medical Inc. Medline Cath Cardinal 1 [id number] 423097 33664 570281 5 Pack Health ([id number]) SHEATH 5FR Terumo 1 LOY380 294063 007543 757944 40 Clarinda (RTY716) DIAGNOSTIC [facility] Abelardo 1 974339 771722 893356 706546 30 WIRE .035 260cm J wire (428678) ACIST Hand Acist 1 77491 263320 961915 619147 5 Control Medical (59885) Systems Inc ACIST Acist 1 85891 784523 016840 168802 5 [facility] Medical (48397) Systems Inc DIAGNOSTIC Cardinal 1 UH2815 968133 25826 663061 30 Multipack Health 5Fr catheter set (MK0537) Tegaderm 4 x 3M 1 1626W 161417 033890 497662 5 4 (1626W) PERCUTANEOUS [facility] 1 Y53471 649328 613978 5 ENTRY 19GA needle MULTIPACK Cardinal 1 057038 5 Pigtail 5 Fr Health catheter MULTIPACK JL Cardinal 1 800736 5 4.0 5Fr Health catheter MULTIPACK Cardinal 1 149406 5 3DRC 5Fr Health catheter INFLATOR [facility] 1 AX2292 609340 764103 268307 15 YYzhaoche BasixCompak (UK0968) SHEATH 6FR Terumo 1 FPW287 867154 007285 935352 40 Clarinda (LKA759) GUIDE 6FR AR Medtronic 1 [id number] 341137 37107 392175 1 2.0 SH catheter ([id number]) CHOICE PT [place] 1 [id number] 630932 544144 419736 5 Extra Scientific Support 182cm wire ([id number]) INTEGRITY RX Medtronic 1 [id number] 714076 858635 985223 5 [id number] 2.5 x 12 stent ([id number]) EUPHORA 2.0 Medtronic 1 [id number] 928834 613931 991289 5 [id number] x 15 Balloon ([id number]) INTEGRITY RX Medtronic 1 [id number] 565341 891819 806134 5 [id number] 2.5 x 08 stent ([id number]) EXOSEAL 6Fr Cardinal 1 EX600 669160 419933 327116 10 (EX600) Health Signature Audit [place] Stage Time Signature Unsigned Intra-Procedure 09/17/2017 Silvia 10:25:14 AM Counts RT(R) Signatures Monitor : Gabby Alex Signature : RT Date : Time : [facility] [address] [place] [address]
--- NOTE | ~2017-09-17 | OP ---
PATIENT NAME: ROZ BATISTA V MEDICAL RECORD: [id number] :62 LOCATION:D.CAT ADMISSION DATE: SURGEON: SEYMOUR TREJO MD DATE OF OPERATION: 09/17/2017 PROCEDURES: 1. PTCA stent RCA. 2. PTCA stent PLV. 3. PTCA, PDA. 6. Left heart catheterization. 7. Selective coronary angiography. 8. Left ventriculogram. 9. Left vein graft angiography. 10. SEN angiography. INDICATION: Angina and coronary artery disease. PROCEDURE IN DETAIL: After informed consent was obtained and after a detailed explanation of risks, benefits as well as alternative therapies, the patient elected to proceed with angiogram and angioplasty. The right femoral area was prepped and draped in normal sterile fashion. The right femoral artery was cannulated via modified Seldinger technique with placement of 6-German sheath. All catheters exchanged through this sheath. FINDINGS: The left ventriculogram was performed in standard 30-degree ELLIOTT view, reveals good cardiac wall motion throughout all segments. Overall ejection fraction estimated at 60%. SELECTIVE CORONARY ANGIOGRAPHY: 1. Left main showed no significant angiographic disease. 2. Left anterior descending has high-grade stenosis proximally. 3. SEN to the LAD is widely patent and fills the LAD as well as the diagonal system. 4. Vein graft to the diagonal is closed. 5. Left circumflex is very small and nondominant. 6. The right coronary artery is very large, dominant, has previously placed stents. There is a new 70+ percent stenosis proximally as well as a new 80+ percent stenosis in the PLV. PTCA STENT OF THE RCA AND PLV. The RCA was addressed with a 2.5 x 12 mm Integrity and the PLV with a 2.5 x 8 mm Integrity. This caused plaque shift into the PDA. The PDA was ballooned with a 2.0 balloon. Result was 0% residual throughout. OVERALL IMPRESSION: Successful percutaneous transluminal coronary angioplasty stent of the RCA and PLV going from 70% to 80% initial stenosis to 0% residual. TRANSINT:[id number] Voice Confirmation ID: [id number] DOCUMENT ID: [id number] OPERATIVE REPORT [id number] TAX ECONOMIST,KARI V SEYMOUR TREJO MD at 1153 CC: [id number] DICTATION DATE: 09/17/17 1021 VALET CASHIER: 09/17/17 1228 DEP CLI 09/17/17 [place] [id number] [facility] [place]
[2017-09-17] MEDS ORDERED: ARAVA10 MG (08:17)
[2017-09-17] MEDS ORDERED: NORVASC5 MG PO (08:20)
[2017-09-17 08:34] VITALS: BP 155/53; BMI 27.9
[2017-09-17 09:17] LABS: ANION GAP 10.3 mmol/L (8-16); CALCIUM 9.3 mg/dL (8.5-10.1); CARBON DIOXIDE 27.4 mmol/L (21.0-32.0); CREATININE - SERUM 1.3 mg/dL (0.6-1.3); POTASSIUM - SERUM 3.7 mmol/L (3.5-5.1)
[2017-09-17 09:20] LABS: EOSINOPHILS 4.8 % (0-7); HEMATOCRIT 36.2 % (36.0-48.0); HEMOGLOBIN 11.6 g/dL (12-16); IMMATURE GRANULOCYTES 0.3 % (0-5); LYMPHOCYTES 39.1 % (15-50); MCH 30.5 pg (26.0-34.0); MCV 95.3 fL (80.0-100.0); MEAN PLATELET VOLUME 11.5 fL (7.4-10.4); MONOCYTES 8.9 % (2-11); NEUTROPHILS 44.9 % (40-80); PLATELET COUNT 367 10x3/uL (130-400); RDW 14.6 % (11.5-14.5); WBC 3.9 10x3/uL (4.8-10.8)
[2017-09-17] MEDS ORDERED: PLAVIX75 MG PO (10:30)
== END 2017-09-17 14:40 | disposition home or self-care (01) ==
LOC: D.CATH 08:02
PROVIDERS: Internal Medicine Interventional Cardiology
DX: I25.119 Atherosclerotic heart disease of native coronary artery with unspecified angina pectoris (principal); I10 Essential (primary) hypertension; R06.09 Other forms of dyspnea; Z01.812 Encounter for preprocedural laboratory examination

== ENCOUNTER 2018-07-17 07:24 | Outpatient (CLI) | payer MEDICARE ==
[~2018-07-17] VITALS: Ht 152.4 cm; Wt 70.9 kg
--- NOTE | ~2018-07-17 | HEMODYNAMI ---
PATIENT:ROZ BATISTA V MEDICAL RECORD: [id number] : 62 LOCATION:[facility] ADMISSION DATE: 07/17/18 Generatedon:07/17/201810:04 Patient name: ROZ BATISTA Patient #: [id number] SSN: D OB: 1960 Date of study: 07/17/2018 Page: Of Hemodynamic Procedure Report Patient Data Patient Demographics Procedure consent was obtained First Name: ROZ Gender: Female Last Name: : 1960 [facility] Initial: V Age: 57 year(s) Patient #: [id number] Race: Additional ID: [id number] Contact details [address]: [address] [place] [address] State: [place] City: [place] Zip code: [address] Past Medical History Allergies Allergen Reaction Date Comments Reported Sulfa drugs 09/02/2014 Morphine 09/17/2017 Other allergy 07/17/2018 FLAGYL, IMITREX, MORPHINE, REGLAN, ROBINUL, SULFA, VAGISIL Admission Admission Data Admission Date: 07/17/2018 Admission Time: 7:24 Height (in.): 61 BSA: 1.7 (m2) Height (cm.): 154.94 BMI: 29.53 (kg/m2) Weight (lbs.): 156.31 Weight (kg.): 70.9 Lab Results Lab Result Date: 07/17/2018 Lab Result Time: 0:00 Biochemistry Name Units Result Min Max BUN mg/dl 31 --(----)-* 7 18 Creatinine mg/dl 1.8 --(----)-* 0.6 1.3 CBC Name Units Result Min Max Hemoglobin g/dl 11.5 *-(----)-- 13.5 17.5 Procedure Procedure Types Cath Procedure Diagnostic Procedure LHC LHC w/Coronaries w/Grafts Sedation Charges Moderate Sedation up to 15 minutes PCI Procedure Coronary Stent Coronary Stent Initial Coronary Stent Additional Procedure Description Procedure Date Procedure Date: 07/17/2018 Procedure Start Time: 9:45 Procedure End Time: 10:03 Procedure Staff Name Function Major Walsh MD Performing Physician Maura Zamora RT Monitor Sonido Taylor RT Scrub Melissa Lee RN Nurse Procedure Data Cath Procedure Fluoroscopy Diagnostic fluoroscopy Total fluoroscopy Time: 3.9 time: 3.9 min min Diagnostic fluoroscopy Total fluoroscopy dose: 519 dose: 519 mGy mGy Contrast Material Contrast Material Type Amount (ml) Isovue 300 131 Entry Location Entry Primary Successful Side Size Upsize Upsize Entry Closure Succes sful Closure Location (Fr) 1 (Fr) 2 (Fr) Remarks Device Remarks Femoral Right 5 Fr 6 Fr Exoseal artery Short Estimated blood loss: 10 ml Diagnostic catheters Device Type Used For End Catheter Placement MULTIPACK Pigtail 5 Fr Procedure catheter MULTIPACK JL 4.0 5Fr Procedure catheter MULTIPACK 3DRC 5Fr Procedure catheter Procedure Complications No complications Procedure Medications Medication Administration Route Dosage 0.9% NaCl I.V. 100 ml/hr Oxygen etCO2 Nasal cannula 2 l/min Lidocaine 2% added to field 20 Heparin Flush Bag added to field 2 bags (1000units/500ml NS) Versed I.V. 2 mg Fentanyl I.V. 100 mcg Versed I.V. 2 mg Fentanyl I.V. 100 mcg Versed I.V. 2 mg Fentanyl I.V. 100 mcg Heparin Bolus I.V. 4000 units Integrilin (Bolus I.V. 6.2 ml 2mg/ml) Plavix P.O. 600 mg Versed I.V. 2 mg Hemodynamics Rest BSA: 1.7 (m2) HGB: 11.5 (g/dl) O2 Consumption: Estimated: 156.09 (ml/min) O2 Con sumption indexed: Estimated:91.82 (ml/min/m) Heart Rate: 59 (bpm) Snapshots Pre Cath Intra NCS Post Cath Vital Signs Time Heart Resp SPO2 etCO2 NIBP (mmHg) Rhythm Pain Sedation Rate (ipm) (%) (mmHg) Status Level (bpm) 9:22:55 59 19 99 22.5 151/65(104) NSR 0 (11) 10(A) , No pain 9:28:08 63 12 100 27 132/61(97) NSR 0 (11) 10(A) , No pain 9:32:26 62 21 100 14.2 114/54(92) NSR 0 (11) 10(A) , No pain 9:36:45 62 16 100 19.5 115/52(89) NSR 0 (11) 10(A) , No pain 9:41:03 63 10 100 24.8 108/54(89) NSR 0 (11) 10(A) , No pain 9:45:15 66 10 99 15.7 94/51(78) NSR 0 (11) 10(A) , No pain 9:49:22 69 16 99 21 110/58(100) NSR 0 (11) 10(A) , No pain 9:53:34 69 13 98 15.7 109/54(85) NSR 0 (11) 10(A) , No pain 9:57:48 72 14 99 16.5 112/54(80) NSR 0 (11) 10(A) , No pain 10:02:02 76 12 97 20.3 121/57(94) NSR 0 (11) 10(A) , No pain Medications Time Medication Route Dose Verified Delivered Reason Notes Effectiveness by by 9:23:15 0.9% NaCl I.V. 100 Major Melissa used for ml/hr Jillian Lee steam table associate 9:23:22 Oxygen etCO2 2 Major Melissa used for Nasal l/min Jillian Lee procedure cannula RN 9:23:27 Lidocaine 2% added 20ml Major Major for local to vial Jillian Walsh MD anesthetic field 9:23:32 Heparin Flush added 2 Major Major used for Bag to bags Jillian Walsh MD procedure (1000units/500ml field NS) 9:42:04 Versed I.V. 2 mg Major Melissa for sedation Jillian Lee RN 9:42:10 Fentanyl I.V. 100 Major Melissa for sedation mcg Jillian Lee RN 9:46:12 Versed I.V. 2 mg Major Melissa for sedation Jillian Lee RN 9:46:15 Fentanyl I.V. 100 Major Melissa for sedation mcg iJllian Lee RN 9:49:20 Versed I.V. 2 mg Major Melissa for sedation Jillian Lee RN 9:49:25 Fentanyl I.V. 100 Major Melissa for sedation mcg Jillian Lee RN 9:51:38 Heparin Bolus I.V. 4000 Major Torres for verifi ed units Jillian Lee anticoagulation with Dr. REINALDO Walsh 9:53:42 Integrilin I.V. 6.2 Major Torres for wasted (Bolus 2mg/ml) ml Jillian Lee anticoagulation 3.7mL RN 9:53:59 Plavix P.O. 600 Major Torres for mg Jillian Lee antiplatelet RN therapy 9:55:51 Versed I.V. 2 mg Major Torres for sedation Jillian Lee vertical roll operator Log Time Note 9:02:53 Melissa Lee RN sent for patient. Start room use. 9:02:56 Diagnostic Cath status Elective 9:02:57 Time tracking: Regular hours (M-F 7:00 - 5:00) 9:03:00 Plan of Care:Hemodynamics will remain stable., Cardiac rhythm will remain stable., Comfort level will be maintained., Respiratory function will remain adequate., Patient/ family verbilizes understanding of procedure., Procedure tolerated without complication., Recovers from procedure without complications.. 9:03:02 Signed procedure consent form obtained from patient. 9:03:17 Procedure type changed to Cath procedure, Diagnostic procedure, LHC, LHC w/Coronaries w/Grafts, Sedation Charges, Moderate Sedation up to 15 minutes, PCI procedure, Coronary Stent, Coronary Stent Initial, Coronary Stent Additional 9:04:04 H&P Date Dictated: 07/07/2018 Within 30 days and on chart., H&P Addendum completed by physician on day of procedure. (MUST COMPLETE FOR ALL OUTPATIENTS). 9:04:46 Patient allergic to Other allergyFLAGYL, IMITREX, MORPHINE, REGLAN, ROBINUL, SULFA, VAGISIL 9:04:54 Patient Height : 61 inches 9:06:10 Patient Weight : 156.31 lbs 9:15:36 Patient received from Pre/Post Procedure Room to CCL 1 Alert and oriented. Tansferred to table in Supine position. 9:15:37 Warm blankets applied, and fernando hugger turned on for patient comfort. 9:15:38 Correct patient and procedure confirmed by team. 9:15:38 ECG and BP/O2 sat monitors applied to patient. 9:21:41 Vital chart was started 9:23:15 0.9% NaCl 100 ml/hr I.V. was administered by Melissa Lee RN; used for procedure; 9:23:19 Baseline sample Acquired. 9:: Oxygen 2 l/min etCO2 Nasal cannula was administered by Melissa Lee RN; used for procedure; :: Rhythm: sinus bradycardia 9::24 Full Disclosure recording started 9::25 Pre-procedure instructions explained to patient. 9:: Pre-op teaching completed and patient verbalized understanding. 9:: Lidocaine 2% 20ml vial added to field was administered by Major Walsh MD; for local anesthetic; 9:23:28 Family in patients room. 9:23:31 Is the patient allergic to Iodine/contrast media? No. 9::32 Heparin Flush Bag (1000units/500ml NS) 2 bags added to field was administered by Major Walsh MD; used for procedure; 9:23:32 Is patient on blood thinner?No 9:23:33 Patient diabetic? Yes. 9:23:34 If diabetic: On Metformin? No 9:23:46 INSULIN DEPENDENT 9:23:50 Previous problem with sedation/anesthesia? No ? 9:23:51 Snore? Yes 9:23:52 Sleep apnea? No 9:23:53 Deviated septum? No 9:27:39 Opens mouth fully? Yes 9:27:41 Sticks out tongue? Yes 9:27:44 Airway obstruction? No ? 9:28:01 Dentures? No ? 9:28:06 Pre procedure: right dorsailis pedis pulse 2+ Normal; easily identifiable; not easily obliterated 9:28:12 IV patent on arrival in left hand with 0.9% NaCl at [facility]. 9:28:40 Lab Result : BUN 31 mg/dl 9::40 Lab Result : Creatinine 1.8 mg/dl 9:28:40 Lab Result : Hemoglobin 11.5 g/dl 9:28:43 Lab results completed and on chart. 9:28:44 Alarms reviewed by R. N. 9:28:45 Sharps counted by scrub and verified by R.N. 9:28:47 Use device set Femoral Dx 9:28:48 ACIST Syringe (07146) opened to sterile field. 9:28:49 Bag Decanter (2002) opened to sterile field. 9:28:50 ACIST Manifold (13564) opened to sterile field. 9:28:51 ACIST Hand Control (49601) opened to sterile field. 9:28:52 Tegaderm 4 x 4 (1626W) opened to sterile field. 9:28:52 Medline Cath Pack ([id number]) opened to sterile field. 9:28:53 DIAGNOSTIC WIRE .035 260cm J wire (284147) opened to sterile field. 9:28:54 DIAGNOSTIC Multipack 5Fr catheter set ([id number]) opened to sterile field. 9:28:55 SHEATH 5FR Clarkrange (HBY418) opened to sterile field. 9:35:30 Zero performed for pressure channel P1 9:41:50 --------ALL STOP TIME OUT------ 9::51 Final Timeout: patient, procedure, and site verified with staff and physician. All members of the team are in agreement. 9::53 Right groin site verified by team. 9::56 Physical assessment completed. ASA score P 2 - A patient with mild systemic disease as per Major Walsh MD. 9:41:58 Sedation plan: IV Moderate Sedation Medication:Versed, Fentanyl 9:42:04 Versed 2 mg I.V. was administered by Melissa Lee RN; for sedation; 9:42:10 Fentanyl 100 mcg I.V. was administered by Melissa Lee RN; for sedation; 9:45:10 Procedure started. 9:45:18 Local anesthetic to right femoral artery with Lidocaine 2% by Major Walsh MD.INITIAL ACCESS ONLY 9:46:12 Versed 2 mg I.V. was administered by Melissa Lee RN; for sedation; 9:46:15 Fentanyl 100 mcg I.V. was administered by Melissa Lee RN; for sedation; 9:46:29 A 5 Fr sheath was inserted into the Right Femoral artery 9:46:38 A MULTIPACK Pigtail 5 Fr catheter was advanced over the wire and used for Procedure. 9:46:50 LV gram done using ELLIOTT 9:46:53 Injector settings: Ml/sec: 10, Volume: 20, 9:47:18 EF : 55 % 9:47:19 Catheter removed. 9:47:23 A MULTIPACK JL 4.0 5Fr catheter was advanced over the wire and used for Procedure. 9:48:30 LCA angiography performed. 9:49:03 Catheter removed. 9:49:18 A MULTIPACK 3DRC 5Fr catheter was advanced over the wire and used for Procedure. 9:49:20 Versed 2 mg I.V. was administered by Melissa Lee RN; for sedation; 9:49:25 Fentanyl 100 mcg I.V. was administered by Melissa Lee RN; for sedation; 9:50:03 SEN to LAD angiography performed. 9:50:37 RCA angiography performed. 9:50:45 Catheter removed. 9:51:12 SHEATH 6FR Clarkrange (KLA336) opened to sterile field. 9:51:12 CHOICE PT Extra Support 182cm wire ([id number]) opened to sterile field. 9:51:12 INFLATOR Merit BasixCompak (KX9363) opened to sterile field. 9:51:38 Heparin Bolus 4000 units I.V. was administered by Melissa Lee RN; for anticoagulation; verified with Dr. Walsh 9:51:52 Sheath upsized to a 6 Fr Short. 9:52:18 GUIDE 6FR AR 1.0 SH catheter ([id number]) opened to sterile field. 9:52:54 6 Fr AR 1 SH guide catheter was inserted over the wire 9:53:42 Integrilin (Bolus 2mg/ml) 6.2 ml I.V. was administered by Melissa Lee RN; for anticoagulation; wasted 3.7mL 9:53:52 CHOICE ES 182 wire advanced. 9:53:54 Wire advanced across lesion. 9:53:59 Plavix 600 mg P.O. was administered by Melissa Lee RN; for antiplatelet therapy; 9:55:11 Place stent Inflation Number: 1 A NADINE RX 2.5 x 08 stent ([id number]) was prepped and advanced across the 1st RPL. The stent was deployed at 17 DARLING for 0:10 (min:sec). 9:55:44 Wire redirected to PDA. 9:55:51 Versed 2 mg I.V. was administered by Melissa Lee RN; for sedation; 9:56:28 Inflation number: 1 The stent balloon was then re-inflated across the R PDA to 5 DARLING for 0:00 (min:sec). 9:56:53 Inflation number: 2 The stent balloon was then re-inflated across the R PDA to 5 DARLING for 0:10 (min:sec). 9:57:02 Stent catheter was removed intact over wire. 9:58:27 Place stent Inflation Number: 3 A NADINE RX 2.0 x 8 stent ([id number]) was prepped and advanced across the R PDA. The stent was deployed at 11 DARLING for 0:10 (min:sec). 9:58:40 Stent catheter was removed intact over wire. 9:58:40 Wire removed. 9:58:41 Guide catheter removed. 9:59:51 EXOSEAL 6Fr (EX600) opened to sterile field. 10:00:00 Sheath removed intact; hemostasis achieved with Exoseal to the Right Femoral artery. 10:00:02 Procedure ended.(Physican Out) 10:01:14 Fluoroscopy time 03.90 minutes. 10:01:18 Flurop Dose total: 519 10:01:18 Fluoroscopy dose: 519 mGy 10:01:21 Contrast amount:Isovue 300 131ml. 10:01:23 Sharps counted by scrub and verified by R.N. 10:01:26 Post-op/insertion site Right Femoral artery dressed using a 4 x 4 and Tegaderm. 10:01:30 Post right femoral artery:stable, soft, clean and dry 10:01:33 Post-procedure physical assessment completed. ASA score P 2 - A patient with mild systemic disease as per Major Walsh MD. 10:01:35 Post procedure rhythm: sinus rhythm 10:01:37 Estimated blood loss: 10 ml 10:01:39 Post procedure instruction explained to patient.Patient verbalizes understanding. 10:01:39 Patient needs reinforcement of post procedure teaching. 10:03:34 Procedure and supply charges have been captured, reviewed, submitted and are correct. 10:03:40 Procedure Complication : No complications 10:03:42 Vital chart was stopped 10:03:43 See physician's report for complete and final results. 10:03:44 Report given to Pre/Post Procedure Room. 10:03:47 Patient transfered to Pre/Post Procedure Room with Bed. 10:03:48 Procedure ended. 10:03:48 Full Disclosure recording stopped 10:03:51 End room use (Document Last) 10:03:51 End room use (Document Last) Intervention Summary Intervention Notes Time ActionType Lesion and Equipment Used Action# Pressure Duration Attributes 9:55:11 Place stent 1st RPL NADINE RX 2.5 x 1 17 00:10 08 stent ([id number]) 9:56:28 Reinflate R PDA NADINE RX 2.5 x 1 5 00:00 stent 08 stent balloon ([id number]) 9:56:53 Reinflate R PDA NADINE RX 2.5 x 2 5 00:10 stent 08 stent balloon ([id number]) 9:58:27 Place stent R PDA NADINE RX 2.0 x 3 11 00:10 8 stent ([id number]) Device Usage Item Name Manufacture Quantity Catalog Number Hospital Part Current M inimal Lot# / Charge Number Stock Stock Serial# Code ACIST Syringe Acist 1 63903 833019 459347 036921 2 0 (23216) Medical Systems Inc Bag Decanter Microtek 1 2001S 801424 17566 861929 5 (2001S) Medical Inc. ACIST Manifold Acist 1 83083 032222 188173 809266 5 (88578) Medical Systems Inc ACIST Hand Acist 1 51540 657527 789890 644347 5 Control Medical (06167) Systems Inc Tegaderm 4 x 4 3M 1 1626W 539030 102421 423681 5 (1626W) Medline Cath Medline 1 [id number] 053161 61946 609469 5 Pack ([id number]) DIAGNOSTIC St Abelardo 1 223972 093753 012899 912457 3 0 WIRE .035 260cm J wire (120674) DIAGNOSTIC Cardinal 1 EE3452 039700 76653 442892 3 0 Multipack 5Fr Health catheter set (FX1412) SHEATH 5FR Terumo 1 BUR082 641164 125773 646288 5 Clarkrange (ISE132) MULTIPACK Cardinal 1 029991 5 Pigtail 5 Fr Health catheter MULTIPACK JL Cardinal 1 995742 5 4.0 5Fr Health catheter MULTIPACK 3DRC Cardinal 1 547003 5 5Fr catheter Health SHEATH 6FR Terumo 1 SGK317 883252 863102 750354 4 0 Clarkrange (KGY487) CHOICE PT Jackson 1 [id number] 063128 287859 209967 5 Extra Support Scientific 182cm wire ([id number]) INFLATOR Merit Merit 1 KX2759 696674 659203 706538 1 5 [facility] (AV5782) GUIDE 6FR AR Medtronic 1 [id number] 855155 97907 110926 1 1.0 SH catheter ([id number]) NADINE RX 2.5 x Medtronic 1 [id number] 533936 3587965 099895 5 [id number] 08 stent ([id number]) NADINE RX 2.0 x Medtronic 1 [id number] 554849 1963466 165725 5 [id number] 8 stent ([id number]) EXOSEAL 6Fr Cardinal 1 EX600 230077 403939 935947 1 0 (EX600) Health Signature Audit Stamps Stage Time Signature Unsigned Intra-Procedure 07/17/2018 Maura Zamora 10:04:10 AM RT(R) Signatures Monitor : Maura Zamora Signature : RT Date : Time : [place] [address] [place] [address]
[~2018-07-17 07:24] MED LIST changes: +ARAVA10 MG; +NORVASC5 MG PO
[2018-07-17 07:51] VITALS: BP 104/30; Ht 152.4 cm; Wt 70.9 kg
[2018-07-17 08:03] LABS: EOSINOPHILS 4.3 % (0-7); HEMATOCRIT 35.1 % (36.0-48.0); HEMOGLOBIN 11.5 g/dL (12-16); IMMATURE GRANULOCYTES 0.2 % (0-5); LYMPHOCYTES 26.8 % (15-50); MCH 30.7 pg (26.0-34.0); MCHC 32.8 g/dL (31.0-37.0); MCV 93.6 fL (80.0-100.0); MEAN PLATELET VOLUME 11.4 fL (7.4-10.4); MONOCYTES 7.1 % (2-11); NEUTROPHILS 60.6 % (40-80); PLATELET COUNT 340 10x3/uL (130-400); RBC 3.75 10x6/uL (4.00-5.40); RDW 15.7 % (11.5-14.5); WBC 6.2 10x3/uL (4.8-10.8)
[2018-07-17 08:11] LABS: ANION GAP 13.6 mmol/L (8-16); CARBON DIOXIDE 26.5 mmol/L (21.0-32.0); CREATININE - SERUM 1.8 mg/dL (0.6-1.3); POTASSIUM - SERUM 4.1 mmol/L (3.5-5.1)
[2018-07-17] MEDS ORDERED: PLAVIX75 MG PO (10:36)
[2018-07-17] MEDS ORDERED: BAYER CHEWABLE81 MG PO (10:37)
--- NOTE | 2018-07-17 13:37 | OP ---
PATIENT NAME: ROZ BATISTA V MEDICAL RECORD: [id number] :62 LOCATION:D.CAT ADMISSION DATE: SURGEON: SEYMOUR TREJO MD DATE OF OPERATION: 07/17/2018 PROCEDURES: 1. PTCA stent RCA PLV. 2. PTCA stent RCA PDA. 3. Left heart catheterization. 4. Selective coronary angiography. 5. Left ventriculogram. 6. SEN angiography. INDICATION: Angina and coronary artery disease. PROCEDURE IN DETAIL: After informed consent was obtained and after a detailed description of the risks, benefits as well as alternative therapies, the patient elected to proceed with angiogram and angioplasty. The right femoral area was prepped and draped in normal sterile fashion. Right femoral artery was cannulated via modified Seldinger technique with placement of 6-Romansh sheath. All catheters exchanged through this sheath. FINDINGS: Left ventriculogram was performed in standard 30-degree ELLIOTT view, reveals good cardiac wall motion throughout all segments. Overall ejection fraction estimated 60%. SELECTIVE CORONARY ANGIOGRAPHY: 1. Left main has no significant angiographic disease. 2. Left anterior descending has 90% stenosis proximally. 3. SEN to the LAD is grafted. Distal LAD is small and diffusely diseased, but widely patent. 4. Left circumflex is extremely small, diffusely diseased, but widely patent. 5. Vein graft to the circumflex is closed. 6. The right coronary artery has previously placed stents. These are widely patent until the PLV. The PLV has greater than 80% in-stent restenosis. PTCA STENT OF THE RIGHT CORONARY ARTERY PLV: The stent used was a 2.5 x 8 mm Mario. This caused plaque shift into the PDA. The PDA was 95% stenosed. This was addressed with a 2.0 x 8 mm [place]. Result was 0% residual throughout. OVERALL IMPRESSION: Successful percutaneous transluminal coronary angioplasty stent of the RCA, PDA and PLV both going from 80% to 90% initial stenosis to 0% residual. TRANSINT:[id number] Voice Confirmation ID: [id number] DOCUMENT ID: [id number] SEYMOUR TREJO MD at 1337 CC: [id number] DICTATION DATE: 07/17/18 1009 CARE COORDINATOR: 07/17/18 1125 [address] [place] [id number]
== END 2018-07-17 13:55 ==
LOC: D.CATH 07:24
PROVIDERS: Internal Medicine Interventional Cardiology
DX: I25.119 Atherosclerotic heart disease of native coronary artery with unspecified angina pectoris (principal); Z01.812 Encounter for preprocedural laboratory examination
CPT/HCPCS: 93458; C9600; C9601